=== PATIENT | female | born 2000 | race Caucasian/White ===

== ENCOUNTER 2023-11-09 09:50 | Observation (INO) | payer OTHER, SELFPAY ==
[2023-11-09] VITALS (29 sets, daily range): BP systolic 124–164; BP diastolic 67–114; PULSE 91–135; RESP 14–27; TEMP 36.3–36.7; O2SAT 90–99; BMI 43.4
--- NOTE | ~2023-11-09 | CT_ITS ---
EXAMINATION: CTA abdomen pelvis DATE: 11/09/2023 14:30 INDICATION: Abdominal pain. Right upper quadrant abdominal pain, nausea and vomiting x2-3 days. Repor arcadio kidney infection on outside CT. TECHNIQUE: Computed tomography (CT) of the abdomen and pelvis was performed with 100 mL Omnipaque-350 intravenous contrast in the arterial phase. Automated exposure control and iterative reconstruction technique were employed. The dose-length product was 1360.81 mGy-cm. COMPARISON: None. FINDINGS: Lower thorax: Unremarkable Liver: Normal. Biliary/Gallbladder: Mild gallbladder distention, otherwise normal. No bile duct dilation. Pancreas: No mass or duct dilation. Spleen: Normal. Adrenals:No mass. Kidneys: Delayed right nephrogram. Moderate right perinephric fluid. Mild right hydronephrosis. Nicole l left kidney. GI tract: Mild distal esophageal and gastric wall edema. No small or large bowel dilation. Normal brenda endix. Mesentery/Peritoneum: No ascites, mass, or free air. Retroperitoneum: No mass. Normal abdominal aorta and abdominal arteries, specifically, no renal arter y stenosis or thrombosis detected. Pelvis: 3 mm distal left ureteral calcification. Pelvic organs otherwise within normal limits. Soft Tissues: Subcutaneous gas over the left gluteal region. Bones: No acute osseous finding. IMPRESSION: Mild esophagitis/gastritis. Mild gallbladder hydrops, may be secondary to fasting. Correlate with biliary labs. 3 mm distal right ureteral stone causing mild-moderate obstructive uropathy. Prominent right perineph diya fluid. Urinoma/infection not excluded. Comparison to outside studies would be helpful. Left gluteal subcutaneous gas, possible injection site. Reviewed, dictated and finalized at location K. 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 Mild gallbladder hydrops, may be secondary to fasting. Correlate with biliary l abs. 3 mm distal right ureteral stone causing mild-moderate obstructive uropathy. Pr ominent right perinephric fluid. Urinoma/infection not excluded. Comparison to outside studies would be helpful. Left gluteal subcutaneous gas, possible injection site.
--- NOTE | ~2023-11-09 | US_ITS ---
US right upper quadrant INDICATION: Abdomen pain PROCEDURE: Realtime right upper abdominal ultrasound. COMPARISON: No prior studies for comparison. FINDINGS: The pancreas is normal without focal mass or pancreatic ductal dilation. Liver echotexture is normal without focal mass or intrahepatic biliary dilatation. There is normal directional flow i n the portal vein. The gallbladder is normal without stones, gallbladder wall thickening or pericholecystic fluid. Comm on bile duct measures 3 mm. No sonographic Chao's sign. There is mild right renal caliectasis. IMPRESSION: 1: Mild right renal caliectasis. Reviewed, dictated and finalized at location B. PRESIDENT FOR INSTRUCTION
--- NOTE | ~2023-11-09 | XR_ITS ---
EXAMINATION: XR retrograde pyelo w/stent RT DATE: 11/11/2023 15:05 INVESTIGATOR CLAIMS INDICATION: RIGHT SIDE RETRO/STENT . TECHNIQUE: 4 fluoroscopic images of the right abdomen and pelvis were obtained during retrograde pyel ography with stent placement performed by the surgeon. I was not present in the operating room. Fluor oscopy exposure time was 23.2 seconds. Air Kerma 10.10 mGy. DAP 0.09063 mGym2. COMPARISON: CTA abdomen pelvis 11/09/2023 FINDINGS: Contrast fills a minimally dilated ureter. Post stent deployment the proximal coil terminates in an u pper pole calyx, the distal coil terminates over the right aspect of the urinary bladder. IMPRESSION: Fluoroscopic documentation of retrograde pyelography with stent placement. Please refer to the operat cate note for complete procedural details . Reviewed, dictated and finalized at location K. STIGATOR CLAIMS IMPRESSION: Fluoroscopic documentation of retrograde pyelography with stent placement. Plea se refer to the operative note for complete procedural details .
[2023-11-09] MEDS: SODIUM CHLORIDE 0.9% IV 1,000 ML 999 ML IV CONT (10:29)
[2023-11-09] MEDS: ONDANSETRON INJ 4 MG/2 ML VIAL IV PUSH (10:29)
[2023-11-09] MEDS: MORPHINE SULFATE (*CRX) 4 MG/ML INJ IV PUSH (10:30)
[2023-11-09 10:52] LABS: Basophils Absolute Auto 0.1 K/mm3 (0.0-0.1); Basophils Percent Auto 0.5 % (0.2-1.2); Eosinophils Percent Auto 0.4 % (0-4.4); Hematocrit 39.4 % (37.0-47.0); Hemoglobin 12.5 g/dL (12.0-15.0); Immature Granulocyte Absolute 0.05 K/mm3 (0.00-0.031); Immature Granulocyte Percent A 0.5 % (0-0.5); Lymphocytes Absolute Auto 1.42 K/mm3 (0.9-3.2); Lymphocytes Percent Auto 14.8 % (18.3-44.2); Mean Corpuscular HGB Conc 31.7 g/dl (32-36); Mean Corpuscular Hemoglobin 26.9 pg (26-34); Mean Corpuscular Volume 84.7 fl (80-100); Mean Platelet Volume 9.3 fl (7.4-10.4); Monocytes Absolute Auto 0.5 K/mm3 (0.1-0.6); Monocytes Percent Auto 4.9 % (2.6-8.5); Neutrophils Absolute Auto 7.6 K/mm3 (1.3-6.7); Neutrophils Percent Auto 78.9 % (45.5-73.1); Platelet Count Result 312 k/mm3 (150-375); Red Blood Count 4.65 M/mm3 (4.2-5.4); Red Cell Distribution Width 13.3 % (11.5-14.5); White Blood Count 9.6 K/mm3 (4.5-10.0)
[2023-11-09] MEDS: PROMETHAZINE HCL 25 MG/ML AMPUL 12.5 MG IV PUSH (10:53)
[2023-11-09 11:08] LABS: Alanine Aminotransferase 21 U/L (6-35); Albumin Level 4.1 g/dL (3.5-5.1); Alkaline Phosphatase 81 U/L (38-126); Anion Gap 8 mmol/L (8-16); Aspartate Amino Transferase 29 U/L (14-36); Bilirubin,Total 0.5 mg/dL (0.2-1.3); Blood Urea Nitrogen 13 mg/dL (7-17); Calcium 9.1 mg/dL (8.4-10.2); Carbon Dioxide 23 mmol/L (22-30); Chloride 106 mmol/L (98-107); Estimated CRCL calculation 109 ml/min; Estimated Glomerular Filt Rate > 60; Glucose 109 mg/dL (65-110); Lipase 38 U/L (23-300); Potassium 4.1 mmol/L (3.4-5.0); Sodium 137 mmol/L (137-145)
--- NOTE | 2023-11-09 11:22 | ED.ABDPAIN ---
HPI - Abdominal Pain General Chief Complaint: Abdominal Pain Stated Complaint: abd pain Time Seen by Provider: 11/09/23 09:52 History of Present Illness HPI narrative: Patient is a 23-year-old female who presents ER with abdominal pain. Right upper quadrant. Sharp. Associated nausea and vomiting. Ongoing for couple days. Intermittent. She was seen at an outside hospital yesterday and had an outpatient CT scan. She is started on Levaquin and told she had some sort of infection but she is unsure where the sources. Patient has had severe vomiting today which prompted return visit. No blood in emesis or stool. Related Data Home Medications Medication Instructions Recorded Confirmed No Home Medications 11/09/23 11/09/23 Allergies Allergy/AdvReac Type Severity Reaction Status Date / Time No Known Allergies Allergy Verified 11/09/23 18:09 [facility] Past Medical History Medical History (Updated 11/09/23 @ 19:21 by Waqas Piedra MD) Healthy female adult Surgical History Surgical History (Updated 11/09/23 @ 11:28 by Waqas Piedra MD) No history of previous surgery Family History Family History (Updated 11/09/23 @ 17:23 by Monica Leonard RN) Father Diabetes mellitus Social History Social History Smoking status: Never smoker Alcohol intake: never Substance use: never Do You Feel Safe in your Home?: Yes Lack of Transportation: No Lack of Food: Never True Current Housing: I Have Housing Concerned About Future Housing: No Difficulty Paying Gas/Electric Bills: No Difficulty Paying for Meds: No Currently Unemployed: No Education: Associate Degree Difficulty w/ Childcare or Family Care: No Spiritual care concerns: No Exam Narrative: GENERAL: Uncomfortable-appearing, morbidly obese, and actively vomiting. HEAD: Normocephalic, atraumatic. ENT: Mucous membranes moist. NECK: Supple. CHEST: Clear to auscultation. No respiratory distress. HEART: Regular rate and rhythm. Normal peripheral pulses. ABDOMEN: Soft, tender palpation right upper quadrant with guarding, nondistended EXTREMITIES: Normal range of motion. No edema. SKIN: Warm, dry, no rash. NEURO: Alert and oriented x3. PSYCH: Normal mood and affect. Course Course Emergency Course: 1122: Apparently patient was not seen in the ER, she had an outpatient CT scan of abdomen and pelvis. We will obtain copies of those in indeed shows a shows no acute intra-abdominal process. 1330: outside CT scan showed no abnormality in the abdomen pelvis. There were no stones in the gallbladder or the kidneys. There was no evidence of enteritis. Patient continues to have severe persistent pain in the right upper quadrant. Ultrasound did not show any cholecystitis. It did show some dilated calices within the kidney. Urinalysis/CBC/ BMP normal. Patient has received morphine/Dilaudid. Will try Bentyl and simethicone. We will also add on a CT of the abdomen and pelvis since patient continues to have pain but no obvious cause. 1443: Awaiting CTA results. Patient is on pain will get an additional 1mg of Dilaudid. Discussed with urology. Admit for pain control. Recommend scheduled Toradol IV 15 mg q.6 hours. Patient accepted by hospitalist service. Patient with diagnosis and treatment plan and verbalized understanding. Vital Signs Vital signs: Vital Signs Temperature 98.0 F 11/09/23 09:56 Pulse Rate 102 H 11/09/23 09:56 Respiratory Rate 18 11/09/23 09:56 Blood Pressure 154/98 H 11/09/23 09:56 Pulse Oximetry 99 11/09/23 09:56 Oxygen Delivery Room Air 11/09/23 09:56 Temperature 97.4 F L 11/09/23 17:00 Pulse Rate 106 H 11/09/23 17:00 Respiratory Rate 14 11/09/23 17:00 Blood Pressure 140/92 H 11/09/23 17:00 Pulse Oximetry 99 11/09/23 17:00 Oxygen Delivery Room Air 11/09/23 09:56 MDM - Abdominal Pain Lab Data 11/09/23 10:37 11/09/23 10:37
[2023-11-09] MEDS: HYDROmorphone HCL INJ (*CRX) 1 MG/ML SYR IV PUSH ×2 (11:27→14:44)
[2023-11-09 12:45] LABS: Appearance Urine Clear (Clear); Bacteria Urine Rare /hpf; Bilirubin Urine Negative (Negative); Color Urine Yellow (Yellow); Glucose Urine UA Negative (Negative); Ketones Urine 1+ mg/dL (Negative); Leukocyte Esterase Ur Trace LEU/UL (Negative); Nitrate Urine Negative (Negative); Non Pathogenic Casts 0-2; Protein Urine Negative (Negative); Specific Grav Ur 1.015 (1.001-1.035); Squamous Epithelial Cell Urine Few /hpf (Few); Urobilinogen Urine 0.2 mg/dL (<2.0); WBC Urine 0-5 /hpf
[2023-11-09 12:50] LABS: Add Urine Microscopic? YES
[2023-11-09] MEDS: DICYCLOMINE HCL INJ 20 MG/2 ML VIAL IM (13:52)
[2023-11-09] MEDS: SIMETHICONE 125 MG CHEW TAB PO (13:53)
--- NOTE | 2023-11-09 13:57 | PC.NURSE ---
Urine test added to lab
[2023-11-09 14:06] LABS: Pregnancy On Board Control Positive; Urine Pregnancy Test Negative
[2023-11-09] MEDS: TAMSULOSIN HCL 0.4 MG CAPSULE PO (15:38)
[2023-11-09] MEDS: KETOROLAC 30 MG/ML VIAL (*BKC) IV PUSH (15:39)
--- NOTE | 2023-11-09 15:52 | PM.IMHP ---
H&P: HPI History of Present Illness Date/Time: 11/09/23 16:45 Chief Complaint: Right lower quadrant pain. Narrative: This is a 23-year-old female who presented to the emergency department via private vehicle for evaluation of right lower quadrant pain. The patient provides the following history. She describes an intermittent, sharp and shooting pain in the right lower quadrant associated with nausea and vomiting. She was seen in the ED at an outside hospital yesterday and reportedly had a CT scan done which she believes was unremarkable. She was discharged with a prescription for levofloxacin for suspected urinary tract infection. Her symptoms have continued and are worsening and she came in for evaluation. She denies fever, dysuria, hematuria, and diarrhea. CT today showed a 3 mm distal right ureteral stone causing vixv-bx-vyfbwkyt obstructive uropathy with prominent right perinephric fluid and she is being admitted in this setting for antibiotics, pain control, and urology consultation. Review of Systems Review of Systems: Twelve systems were reviewed and are negative except for as per HPI. [facility] Past Medical History Medical History Healthy female adult Surgical History Surgical History No history of previous surgery Family History Family History Father Diabetes mellitus Social History Social History Smoking status: Never smoker Alcohol intake: never Substance use: never Do You Feel Safe in your Home?: Yes Lack of Transportation: No Lack of Food: Never True Current Housing: I Have Housing Concerned About Future Housing: No Difficulty Paying Gas/Electric Bills: No Difficulty Paying for Meds: No Currently Unemployed: No Education: Associate Degree Difficulty w/ Childcare or Family Care: No Spiritual care concerns: No Meds Home Medications and Allergies Home Medications Medication Instructions Recorded Confirmed Type No Home Medications 11/09/23 11/09/23 History Allergies Allergy/AdvReac Type Severity Reaction Status Date / Time No Known Allergies Allergy Verified 11/09/23 18:09 Vital Signs Vital Signs - 24 hr 11/09/23 09:56 11/09/23 09:58 11/09/23 10:01 Temperature 98.0 F Pulse Rate 102 H 105 H 106 H Respiratory Rate 18 27 H 15 Blood Pressure 154/98 H 154/98 H Pulse Oximetry 99 92 98 Oxygen Delivery Room Air 11/09/23 10:02 11/09/23 10:41 11/09/23 10:45 Temperature Pulse Rate 105 H 130 H 122 H Respiratory Rate 15 16 24 H Blood Pressure Pulse Oximetry 99 99 97 Oxygen Delivery 11/09/23 11:00 11/09/23 11:15 11/09/23 11:33 Temperature Pulse Rate 110 H 110 H 102 H Respiratory Rate 17 19 21 H Blood Pressure 156/103 H Pulse Oximetry 94 98 97 Oxygen Delivery 11/09/23 12:24 11/09/23 12:30 11/09/23 12:31 Temperature Pulse Rate 99 Respiratory Rate 20 Blood Pressure 164/114 H Pulse Oximetry 96 98 97 Oxygen Delivery Exam Narrative: General: Well-developed, nontoxic-appearing female in the semi-Reese position in bed. Weight: 107.8 kg. BMI: 43.5. HEENT: Normocephalic, atraumatic. PERRL, EOMI. Sclera anicteric. Oral mucosa moist. Neck: Supple. Respiratory: Lungs are clear to auscultation bilaterally. Cardiovascular: Regular rate and rhythm with S1-S2. Gastrointestinal: Abdomen is soft, obese, nontender, and nondistended with positive bowel sounds. Patient received IV pain meds not long prior to my examination. No significant tenderness on exam. Skin: Warm and dry. Extremities: No cyanosis, clubbing, or edema. Radial and pedal pulses intact. Neurological: Alert. Cranial nerves 2-12 are grossly intact. No gross focal deficits to casual conversation. Psychiatric: Pleasa
--- NOTE | 2023-11-09 17:10 | PC.NURSE ---
This patient, Nubia Andrade, was admitted to 3 [facility] Surg Room 320-01. Patient/family oriented to hospital policies and general routines including ID bracelet, bed and alarms, visiting hours, pain management, procedures, bathroom and other care routines, personal items, smoking policy, room service/diet, and visiting hours. Information on how to activate the Rapid Response Team has been discussed. Patient/Family are encouraged to report perceived risks to care and to ask questions if they do not understand what they are told or what they should do.
[2023-11-09] MEDS: SODIUM CHLORIDE 0.9% IV 1,000 ML 125 ML IV CONT (17:58)
[2023-11-10] MEDS: HYDROcodone/acetaminophen (*CRX) 5-325 MG TABLET 1 TAB PO (00:44)
[2023-11-10] MEDS: KETOROLAC 15 MG/ML VIAL (*BKC) IV PUSH ×4 (00:47→22:55)
[2023-11-10] MEDS: SODIUM CHLORIDE 0.9% IV 1,000 ML 125 ML IV CONT ×3 (01:55→20:51)
[2023-11-10] MEDS: MORPHINE SULFATE (*CRX) 2 MG/ML INJ IV PUSH ×4 (05:18→20:50)
[2023-11-10 05:46] VITALS: BP 113/64; PULSE 111; RESP 16; TEMP 36.1; O2SAT 98
[2023-11-10 07:23] LABS: Basophils Percent Auto 0.4 % (0.2-1.2); Eosinophils Percent Auto 0.3 % (0-4.4); Hematocrit 38.3 % (37.0-47.0); Hemoglobin 12.1 g/dL (12.0-15.0); Immature Granulocyte Absolute 0.03 K/mm3 (0.00-0.031); Immature Granulocyte Percent A 0.3 % (0-0.5); Lymphocytes Absolute Auto 2.06 K/mm3 (0.9-3.2); Lymphocytes Percent Auto 18.3 % (18.3-44.2); Mean Corpuscular HGB Conc 31.6 g/dl (32-36); Mean Corpuscular Hemoglobin 27.1 pg (26-34); Mean Corpuscular Volume 85.9 fl (80-100); Mean Platelet Volume 9.2 fl (7.4-10.4); Monocytes Absolute Auto 1.1 K/mm3 (0.1-0.6); Monocytes Percent Auto 9.8 % (2.6-8.5); Neutrophils Percent Auto 70.9 % (45.5-73.1); Platelet Count Result 283 k/mm3 (150-375); Red Blood Count 4.46 M/mm3 (4.2-5.4); Red Cell Distribution Width 13.5 % (11.5-14.5); White Blood Count 11.3 K/mm3 (4.5-10.0)
[2023-11-10 07:39] LABS: Anion Gap 7 mmol/L (8-16); Blood Urea Nitrogen 15 mg/dL (7-17); Calcium 8.4 mg/dL (8.4-10.2); Carbon Dioxide 23 mmol/L (22-30); Chloride 108 mmol/L (98-107); Estimated CRCL calculation 99 ml/min; Estimated Glomerular Filt Rate > 60; Glucose 90 mg/dL (65-110); Magnesium 2.1 mg/dL (1.6-2.3); Sodium 138 mmol/L (137-145)
[2023-11-10] MEDS: TAMSULOSIN HCL 0.4 MG CAPSULE PO (08:06)
--- NOTE | 2023-11-10 12:44 | PM.IMPN ---
Progress Note: A&P Assessment and Plan (1) Right distal ureteral calculus: Code(s): N20.1 - Calculus of ureter Status: Acute Assessment and Plan: CT scan shows a 3 mm distal right ureteral stone with kuwa-[id number] obstructive uropathy Urology consulted- appreciate recommendations upon evaluation Strain all urine Pain management orders in place (2) Obstructive uropathy: Code(s): N13.9 - Obstructive and reflux uropathy, unspecified Status: Acute Assessment and Plan: CT scan shows a 3 mm distal right ureteral stone with ilbu-qu-kldcxyjc obstructive uropathy US shows mild right renal calilectasis Urology consulted- appreciate recommendations upon evaluation Strain all urine Pain control in place (3) Pyelonephritis: Code(s): N12 - Tubulo-interstitial nephritis, not specified as acute or chronic Status: Acute Assessment and Plan: CTA: Abd/pelvis show: Prominent right perinephric fluid concerning for nephritis Urology consulted- appreciate recommendations upon evaluation (4) Elevated blood pressure reading: Code(s): R03.0 - Elevated blood-pressure reading, without diagnosis of hypertension Status: Acute Assessment and Plan: BP elevated in ED and upon admission BP-154/98 in ED, today with pain control 113/64 BP appears to be pain related, as pain is controled BP should normalize Continue to monitor Time Spent With Patient Time with patient: 15 - 25 minutes Subjective Date/time seen: 11/10/23 844 Interval history: 23 year old female seen today in interval assessment after ER visit for elevated BP and right lower quadrant pain and admitted in this setting for antibiotics, pain control, and urology consultation. She is receiving Rocephin for perinephric fluid which is concerning for pyelonephritis while awaiting urology evaluation. She describes per pain as stabbing on the right lower quadrant. She stated that she initially had N/V that has subsided. Also admits to some dysuria- urine culture pending at this time. CT showed a 3 mm distal right ureteral stone causing vzeg-xq-qkfwynfn obstructive uropathy. Her pain was intense and pain medications were adjusted accordingly. BPs appear to elevate with pain, as pain is controlled BP will return to normal. All questions were answered to satisfaction. Review of Systems Review of Systems: All systems reviewed & are unremarkable except as noted in HPI and below Exam Narrative: General: Well-developed, nontoxic-appearing female in supine position in bed. Alert and Oriented x 4 HEENT: Normocephalic, atraumatic. PERRL, EOMI. Sclera anicteric. Oral mucosa moist. Neck: Supple. no JVP, FROM Respiratory: Lungs are clear to auscultation bilaterally. non-labored respirations Cardiovascular: Regular rate and rhythm with S1-S2. Gastrointestinal: Abdomen is soft, nontender, and nondistended with positive bowel sounds. No significant tenderness on exam. Skin: Warm and dry. Extremities: No cyanosis, clubbing, or edema. Radial and pedal pulses intact. Neurological: Alert. Cranial nerves II-XII are grossly intact. No gross focal deficits to casual conversation. Psychiatric: Pleasant and cooperative with normal mood and affect. Judgment and insight intact. Objective Data Vital Signs Vital Signs: Vital Signs - 24 hr 11/09/23 14:00 11/09/23 14:02 11/09/23 14:15 Temperature Pulse Rate Respiratory Rate Blood Pressure 151/91 H Pulse Oximetry 98 98 97 Oxygen Delivery 11/09/23 14:31 11/09/23 14:44 11/09/23 14:46 Temperature Pulse Rate 110 H 104 H Respiratory Rate 19 21 H Blood Pressure 147/98 H Pulse Oximetry 93 95 93 Oxygen Delivery 11/09/23 15:03 11/09/23 15:20 11/09/23 15:30 Temperature Pulse Rate 109 H 135 H 94 Respiratory Rate 20 19 20 Blood Pressure Pulse Oximetry 94 Oxygen Delivery 11/09/23 15:45 11/09/23 16:00 11/09/23 16:15 Temper
--- NOTE | 2023-11-10 13:19 | WPDURCON ---
Assessment and Plan Assessment and plan (1) Right distal ureteral calculus: Code(s): N20.1 - Calculus of ureter Status: Acute (2) Obstructive uropathy: Code(s): N13.9 - Obstructive and reflux uropathy, unspecified Status: Acute Plan Continue with straining urine Continue with Flomax daily Continue with Toradol 15mg IV q 6 hours scheduled Very high likelihood patient will pass the stone given its size and location on CT Will make her NPO after midnight in case stone is not passed in the next 24 hours so we could possibly put her on for ureteroscopy stone extraction Urology Consult Note HPI Date Seen: 11/10/23 Requesting Physician: Mayo Hernandez MD Primary Care Provider: Ric Jorge Consult Narrative Narrative: Nubia Andrade is a 23 year old female who presented with RLQ pain to outside hospital. CT there was unremarkable. Pain persisted and she presented to [facility] ER yesterday where a repeat CT scan noted a 2mm distal UVJ with mild hydronephrosis. No other stones noted. Denies hematuria. This is the patient's 1st stone. Only symptom currently his dysuria/frequency. Toradol resolved the pain and pt continues to strain urine. [facility] Past Medical History Medical History Healthy female adult Surgical History Surgical History No history of previous surgery Family History Family History Father Diabetes mellitus Social History Social History Smoking status: Never smoker Alcohol intake: never Substance use: never Do You Feel Safe in your Home?: Yes Lack of Transportation: No Lack of Food: Never True Current Housing: I Have Housing Concerned About Future Housing: No Difficulty Paying Gas/Electric Bills: No Difficulty Paying for Meds: No Currently Unemployed: No Education: Associate Degree Difficulty w/ Childcare or Family Care: No Spiritual care concerns: No Meds Home Medications and Allergies Home Medications Medication Instructions Recorded Confirmed Type No Home Medications 11/09/23 11/09/23 History Allergies Allergy/AdvReac Type Severity Reaction Status Date / Time No Known Allergies Allergy Verified 11/09/23 18:09 Vital Signs Vital Signs - 24 hr 11/09/23 14:00 11/09/23 14:02 11/09/23 14:15 Temperature Pulse Rate Respiratory Rate Blood Pressure 151/91 H Pulse Oximetry 98 98 97 Oxygen Delivery 11/09/23 14:31 11/09/23 14:44 11/09/23 14:46 Temperature Pulse Rate 110 H 104 H Respiratory Rate 19 21 H Blood Pressure 147/98 H Pulse Oximetry 93 95 93 Oxygen Delivery 11/09/23 15:03 11/09/23 15:20 11/09/23 15:30 Temperature Pulse Rate 109 H 135 H 94 Respiratory Rate 20 19 20 Blood Pressure Pulse Oximetry 94 Oxygen Delivery 11/09/23 15:45 11/09/23 16:00 11/09/23 16:15 Temperature Pulse Rate 100 91 117 H Respiratory Rate 20 17 23 H Blood Pressure Pulse Oximetry 94 94 90 Oxygen Delivery 11/09/23 16:37 11/09/23 16:59 11/09/23 17:00 Temperature 36.5 C 36.3 C L Pulse Rate 116 H 105 H 106 H Respiratory Rate 17 14 14 Blood Pressure 133/91 H 140/92 H Pulse Oximetry 98 98 99 Oxygen Delivery 11/09/23 19:31 11/09/23 22:00 11/10/23 05:46 Temperature 36.6 C 36.1 C L Pulse Rate 100 111 H Respiratory Rate 18 16 Blood Pressure 124/67 113/64 Pulse Oximetry 99 98 98 Oxygen Delivery Room Air 11/10/23 08:00 Temperature Pulse Rate Respiratory Rate Blood Pressure Pulse Oximetry Oxygen Delivery Room Air Exam Narrative: NAD NCAT Breathing unlabored Abdomen soft nt nd deferred MAEW Results Labs 11/10/23 06:55 11/10/23 06:55 Labs: Short CBC 11/10/23
[2023-11-10 14:00] VITALS: BP 136/88; PULSE 99; RESP 20; TEMP 36.2; O2SAT 98
[2023-11-10 22:00] VITALS: BP 133/82; PULSE 86; RESP 20; TEMP 36.1; O2SAT 99
[2023-11-10] MEDS: SALINE LOCK FLUSH 10 ML IV PUSH (22:55)
[2023-11-11] VITALS (11 sets, daily range): BP systolic 108–152; BP diastolic 60–96; PULSE 65–110; RESP 14–20; TEMP 35.6–36.7; O2SAT 97–100
[2023-11-11] MEDS: SODIUM CHLORIDE 0.9% IV 1,000 ML 125 ML IV CONT (04:45)
[2023-11-11] MEDS: KETOROLAC 15 MG/ML VIAL (*BKC) IV PUSH ×3 (04:45→16:26)
[2023-11-11] MEDS: SALINE LOCK FLUSH 10 ML IV PUSH (04:46)
[2023-11-11 04:57] LABS: Hematocrit 32.9 % (37.0-47.0); Hemoglobin 10.4 g/dL (12.0-15.0); Mean Corpuscular HGB Conc 31.6 g/dl (32-36); Mean Corpuscular Hemoglobin 27.2 pg (26-34); Mean Corpuscular Volume 86.1 fl (80-100); Platelet Count Result 227 k/mm3 (150-375); Red Blood Count 3.82 M/mm3 (4.2-5.4); Red Cell Distribution Width 13.6 % (11.5-14.5); White Blood Count 9.1 K/mm3 (4.5-10.0)
[2023-11-11 05:27] LABS: Alanine Aminotransferase 15 U/L (6-35); Albumin Level 3.1 g/dL (3.5-5.1); Alkaline Phosphatase 65 U/L (38-126); Anion Gap 4 mmol/L (8-16); Aspartate Amino Transferase 25 U/L (14-36); Bilirubin,Total 0.5 mg/dL (0.2-1.3); Blood Urea Nitrogen 10 mg/dL (7-17); Calcium 8.4 mg/dL (8.4-10.2); Carbon Dioxide 25 mmol/L (22-30); Chloride 107 mmol/L (98-107); Estimated CRCL calculation 90 ml/min; Estimated Glomerular Filt Rate > 60; Glucose 84 mg/dL (65-110); Potassium 4.1 mmol/L (3.4-5.0); Sodium 136 mmol/L (137-145)
--- NOTE | 2023-11-11 08:10 | WPDUROPN2 ---
Progress Note: A&P Assessment and Plan (1) Right distal ureteral calculus: Code(s): N20.1 - Calculus of ureter Status: Acute (2) Hydronephrosis: Code(s): N13.30 - Unspecified hydronephrosis Status: Acute Plan I spoke with her and her family this morning. She states she still has right flank pain. She rates as an 8. We discussed continued observation with a trial of conservative stone passage versus intervention. She prefers intervention. The stone is difficult to visualize on the CT scan but there is hydronephrosis and perinephric fluid. We will plan on right ureteroscopy with stone extraction possible stent. She understands risks of bleeding, infection, damage to the urinary tract. She understands the stone may not be present and may have already passed. She understands the postoperative recovery and expectations regarding a stent Subjective Subjective Date/Time Seen: 11/11/23 08:10 Interval history: she states stone is yet to pass. She rates her pain as intermittently at an 8. I reviewed her CT scan. She does have fluid around the right kidney. There is hyuk-mc-cebcszwy hydronephrosis. The stone is difficult to visualize in the pelvis. Exam Narrative: No acute distress normal breathing alert orient x3 Objective Data Vital Signs Vital Signs: Vital Signs - 24 hr 11/10/23 14:00 11/10/23 20:00 11/10/23 22:00 Temperature 97.1 F L 97 F L Pulse Rate 99 86 Respiratory Rate 20 20 Blood Pressure 136/88 133/82 Pulse Oximetry 98 99 Oxygen Delivery Room Air 11/11/23 06:00 Temperature 97.6 F Pulse Rate 80 Respiratory Rate 20 Blood Pressure 131/81 Pulse Oximetry 98 Oxygen Delivery Intake/Output Intake/Output: Intake & Output 11/08/23 11/09/23 11/10/23 11/11/23 23:59 23:59 23:59 23:59 Intake Total 1510 15733 1000 Output Total 2700 1000 Balance 1510 7300 0 Meds/Results Medications: Active Medications Generic Name Dose Route Start Last Admin Trade Name Freq PRN Reason Stop Dose Admin Acetaminophen 650 mg 11/09/23 15:57 Acetaminophen 325 Mg Tablet PO Q6H PRN Mild Pain (1-3) or Fever Hydrocodone Bitart/Acetaminophen 1 tab 11/09/23 15:28 11/10/23 00:44 Hydrocodone/Acetaminophen (*Crx) 5-325 Mg Tablet PO 1 tab Q4H PRN Administration Pain Rated 4-6 Sodium Chloride 1,000 mls @ 125 mls/hr 11/09/23 15:40 11/11/23 04:45 Normal Saline Iv IV CONT 125 mls/hr .Q8H TIFFANIE Administration Ceftriaxone Sodium 1 gm in 50 mls @ 100 mls/hr 11/09/23 16:00 11/10/23 15:50 Rocephin 1 Gm/Ns 50 Ml IVPB Infused Q24H TIFFANIE Infusion Ketorolac Tromethamine 15 mg 11/10/23 10:35 11/11/23 04:45 Ketorolac 15 Mg/Ml Vial (*Bkc) IV PUSH 15 mg Q6H TIFFANIE Administration Morphine Sulfate 2 mg 11/10/23 08:45 11/10/23 20:50 Morphine Sulfate (*Crx) 2 Mg/Ml Inj IV PUSH 2 mg Q3HR PRN Administration Pain Rated 7-10 Ondansetron HCl 4 mg 11/09/23 15:28 Ondansetron Inj 4 Mg/2 Ml Vial IV PUSH Q4H PRN Nausea Sodium Chloride 10 ml 11/10/23 22:00 11/11/23 04:46 Saline Lock Flush IV PUSH 10 ml Q8HR TIFFANIE Administration Sodium Chloride 10 ml 11/10/23 18:34 Saline Lock Flush IV PUSH PRN PRN Flush Sodium Chloride 20 ml 11/10/23 18:34 Saline Lock Flush IV PUSH PRN PRN after blood draws Tamsulosin HCl 0.4 mg 11/10/23 09:00 11/10/23 08:06 Tamsulosin Hcl 0.4 Mg Capsule PO 0.4 mg QAM TIFFANIE Administration Radiology Results: ITS Impressions Upper Quadrant Ultrasound 11/09/23 11:28 IMPRESSION: 1: Mild right renal caliectasis. Abdomen/Pelvis CTA 11/09/23 14:41 IMPRESSION: Mild esophagitis/gastritis. Mild gallbladder hydrops, may be secondary to fasting. Correlate with biliary labs. 3 mm distal right ureteral stone causing mild-moderate obstructive uropathy. Prominent right perinephric fluid. Urinoma/infection not ex
--- NOTE | 2023-11-11 09:33 | P.PNIM_ITS ---
Progress Note: A&P Assessment and Plan (1) Right distal ureteral calculus: Code(s): N20.1 - Calculus of ureter Status: Acute Assessment and Plan: * CT scan shows a 3 mm distal right ureteral stone with qfky-hb-mlfzgzyk obstructive uropathy * Urology consulted- appreciate recommendations upon evaluation * Strain all urine * Pain management orders in place * 11/11/23: Continue to have right flank colicky pain, no stone passed at time of assessment * Urology- Dr. Michele to take to OR for right ureteroscopy with stone extraction possible stent later today. * Patient remains NPO (2) Obstructive uropathy: Code(s): N13.9 - Obstructive and reflux uropathy, unspecified Status: Acute Assessment and Plan: * CT scan shows a 3 mm distal right ureteral stone with ajcu-tt-ccbqmtnq obstructive uropathy * US shows mild right renal calilectasis * Urology consulted- appreciate recommendations upon evaluation * Strain all urine * Pain control in place * 11/11/23: Continue to have right flank colicky pain, no stone passed at time of assessment * Urology- Dr. Michele to take to OR for right ureteroscopy with stone extraction possible stent later today. * Patient remains NPO (3) Pyelonephritis: Code(s): N12 - Tubulo-interstitial nephritis, not specified as acute or chronic Status: Acute Assessment and Plan: * CTA: Abd/pelvis show: Prominent right perinephric fluid concerning for nephritis * Urology consulted- appreciate recommendations upon evaluation * 11/11/23: Continue to have right flank colicky pain, no stone passed at time of assessment * Urology- Dr. Michele to take to OR for right ureteroscopy with stone extraction possible stent later today. (4) Elevated blood pressure reading: Code(s): R03.0 - Elevated blood-pressure reading, without diagnosis of hypertension Status: Acute Assessment and Plan: * BP elevated in ED and upon admission * BP-154/98 in ED, today with pain control 113/64 * BP appears to be pain related, as pain is controled BP should normalize * Continue to monitor * 11/11/23: BP trending down to WNL- Elevated with episodes of pain * Denies any symptoms such as headaches, chest pain, blurred vision at this time. * Educated on dietary measures and increasing activity levels to decreased BP * Continue to monitor Time Spent With Patient Time with patient: 15 - 25 minutes Subjective Date/time seen: 11/11/23 0900 Interval history: 23 year old female seen today at bedside for elevate BP and right flank pain concerning of pyelonephrititis. She stated that stone is yet to pass. She rates her pain as intermittently at an 5 at this time continues to describe as stabbing-like, stated it increased as she started trying to walk around in order to attempt to pass the stone. CT scan showed a 3 mm distal right ureteral stone causing qucc-ld-sehlhbsx obstructive uropathy and fluid around the right kidney. Urology-Dr. Michele saw patient this morning and discussed conservative stone passage trial versus intervention. Patient expressed that she would prefer intervention. Urology plans for OR later today for right ureteroscopy with stone extraction possible stent. Patient remains NPO. Patient denies further dysuria symptoms. Patient also educated on elevated BP. She denies any symptoms such as headaches, chest pain, blurred vision at this time. Educated on dietary measures and increasing activity levels to decreased BP. Patient verbalized unde rstanding. All questions answered to patient's satisfaction. Review of Systems Review of Systems: All systems revi
--- NOTE | 2023-11-11 09:33 | PM.IMPN ---
Progress Note: A&P Assessment and Plan (1) Right distal ureteral calculus: Code(s): N20.1 - Calculus of ureter Status: Acute Assessment and Plan: CT scan shows a 3 mm distal right ureteral stone with ixjj-ff-uscryqkl obstructive uropathy Urology consulted- appreciate recommendations upon evaluation Strain all urine Pain management orders in place 11/11/23: Continue to have right flank colicky pain, no stone passed at time of assessment Urology- Dr. Michele to take to OR for right ureteroscopy with stone extraction possible stent later today. Patient remains NPO (2) Obstructive uropathy: Code(s): N13.9 - Obstructive and reflux uropathy, unspecified Status: Acute Assessment and Plan: CT scan shows a 3 mm distal right ureteral stone with nsgt-ee-oqjcunzl obstructive uropathy US shows mild right renal calilectasis Urology consulted- appreciate recommendations upon evaluation Strain all urine Pain control in place 11/11/23: Continue to have right flank colicky pain, no stone passed at time of assessment Urology- Dr. Michele to take to OR for right ureteroscopy with stone extraction possible stent later today. Patient remains NPO (3) Pyelonephritis: Code(s): N12 - Tubulo-interstitial nephritis, not specified as acute or chronic Status: Acute Assessment and Plan: CTA: Abd/pelvis show: Prominent right perinephric fluid concerning for nephritis Urology consulted- appreciate recommendations upon evaluation 11/11/23: Continue to have right flank colicky pain, no stone passed at time of assessment Urology- Dr. Michele to take to OR for right ureteroscopy with stone extraction possible stent later today. (4) Elevated blood pressure reading: Code(s): R03.0 - Elevated blood-pressure reading, without diagnosis of hypertension Status: Acute Assessment and Plan: BP elevated in ED and upon admission BP-154/98 in ED, today with pain control 113/64 BP appears to be pain related, as pain is controled BP should normalize Continue to monitor 11/11/23: BP trending down to WNL- Elevated with episodes of pain Denies any symptoms such as headaches, chest pain, blurred vision at this time. Educated on dietary measures and increasing activity levels to decreased BP Continue to monitor Time Spent With Patient Time with patient: 15 - 25 minutes Subjective Date/time seen: 11/11/23 0900 Interval history: 23 year old female seen today at bedside for elevate BP and right flank pain concerning of pyelonephrititis. She stated that stone is yet to pass. She rates her pain as intermittently at an 5 at this time continues to describe as stabbing-like, stated it increased as she started trying to walk around in order to attempt to pass the stone. CT scan showed a 3 mm distal right ureteral stone causing kpbn-hz-wjssivtu obstructive uropathy and fluid around the right kidney. Urology-Dr. Michele saw patient this morning and discussed conservative stone passage trial versus intervention. Patient expressed that she would prefer intervention. Urology plans for OR later today for right ureteroscopy with stone extraction possible stent. Patient remains NPO. Patient denies further dysuria symptoms. Patient also educated on elevated BP. She denies any symptoms such as headaches, chest pain, blurred vision at this time. Educated on dietary measures and increasing activity levels to decreased BP. Patient verbalized understanding. All questions answered to patient's satisfaction. Review of Systems Review of Systems: All systems reviewed & are unremarkable except as noted in HPI and below Exam Narrative: General: Well-developed, nontoxic-appearing female in high folwers position in bed. Alert and Oriented x 4 HEENT: Normocephalic, atraumatic. PERRL, EOMI. Sclera anicteric. MMM. Neck: Supple. no JVP, FROM Respiratory: Lungs are clear to auscultation bilaterally. non-labored respirat
[2023-11-11] MEDS: TAMSULOSIN HCL 0.4 MG CAPSULE PO (09:38)
--- NOTE | 2023-11-11 09:45 | WPDHPUPDATE1 ---
History and Physical Update Update Date/Time: 11/11/23 09:45 History and Physical has been reviewed, including an updated exam of the patient. There are NO changes in the patient's condition. Risks, benefits, and alternatives have been discussed and questions answered. Patient agrees to proceed with procedure.
[2023-11-11] MEDS: LACTATED RINGERS 1,000 ML 30 ML IV CONT ×2 (13:00→15:30)
--- NOTE | 2023-11-11 13:16 | PC.NURSE ---
Pt transported via bed off of unit to preop.
[2023-11-11] MEDS: fentaNYL CITRATE INJ (*CRX) 100 MCG/2 ML VIAL 50 MCG IV PUSH (14:30)
--- NOTE | 2023-11-11 15:00 | WPDANESEPPF ---
Anes - Initial Pre Proc Eval Procedure: Operation Date: 11/11/23 15:30 Proposed Procedures p Cystoscopy, Right Ureteroscopy, Right Retrograde Pyelogram, Right Stone Extraction, Possible Right Stent Placement, Possible Holmium Laser - Jossue Michele MD Date/Time: 11/11/23 15:00 Surgeon: Mayo Hernandez MD Pre Op Diagnosis: Ureterolithiasis,Uncontrolled Pain Patient Data Age: 23 Gender: F Height: 1.57 m Weight: 107.5 kg Last Vital Signs Temp 98.0 F 11/11/23 13:17 Pulse 110 H 11/11/23 13:17 Resp 18 11/11/23 13:17 BP 152/87 H 11/11/23 13:17 Pulse Ox 99 11/11/23 13:17 O2 Del Method Room Air 11/11/23 13:17 Allergies Allergy/AdvReac Type Severity Reaction Status Date / Time No Known Allergies Allergy Verified 11/11/23 14:29 Home Medications Medication Instructions Recorded Confirmed Type No Home Medications 11/09/23 11/09/23 History Laboratory Tests 11/11/23 04:51 WBC 9.1 K/mm3 (4.5-10.0) RBC 3.82 L M/mm3 (4.2-5.4) Hgb 10.4 L g/dL (12.0-15.0) Hct 32.9 L % (37.0-47.0) MCV 86.1 fl (80-100) MCH 27.2 pg (26-34) MCHC 31.6 L g/dl (32-36) RDW 13.6 % (11.5-14.5) Plt Count 227 k/mm3 (150-375) MPV 9.0 fl (7.4-10.4) Sodium 136 L mmol/L (137-145) Potassium 4.1 mmol/L (3.4-5.0) Chloride 107 mmol/L (98-107) Carbon Dioxide 25 mmol/L (22-30) Anion Gap 4 L mmol/L (8-16) BUN 10 D mg/dL (7-17) Creatinine 1.00 mg/dL (0.7-1.0) Estim Creat Clear Calc 90 ml/min Estimated GFR > 60 (59 - ) Glucose 84 mg/dL (65-110) Calcium 8.4 mg/dL (8.4-10.2) Total Bilirubin 0.5 mg/dL (0.2-1.3) AST 25 U/L (14-36) ALT 15 U/L (6-35) Alkaline Phosphatase 65 U/L (38-126) Total Protein 6.0 L g/dL (6.3-8.2) Albumin 3.1 L g/dL (3.5-5.1) Patient hx anesthesia problems: none Family hx anesthesia problems: none Results Review: All pre-operative results and documents have been reviewed as part of the pre-operative evaluation. FOR[facility]LY [facility] Past Medical History Medical History Healthy female adult Surgical History Surgical History No history of previous surgery Family History Family History Father Diabetes mellitus Social History Social History Smoking status: Never smoker Alcohol intake: never Substance use: never Do You Feel Safe in your Home?: Yes Lack of Transportation: No Lack of Food: Never True Current Housing: I Have Housing Concerned About Future Housing: No Difficulty Paying Gas/Electric Bills: No Difficulty Paying for Meds: No Currently Unemployed: No Education: Associate Degree Difficulty w/ Childcare or Family Care: No Spiritual care concerns: No Anes - Eval Final PreProcedure Day of Procedure 11/11/23 15:00 Patient weight: morbidly obese Heart: regular rate and rhythm Lungs: clear to auscultation Airway: Mallampati scale class II Neurological: alert and oriented Last oral intake: >/= 8 hours ASA classification: III Emergent: no Anesthetic plan: proceed Anesthesia type and monitoring: general LMA and standard monitoring Results Review: All pre-operative results and documents have been reviewed as part of the pre-operative evaluation. Informed Consent: The patient's anesthetic plan and its attendant risks and benefits were discussed with the patient/family/POA. Questions were solicited and answers provided to the satisfaction of the patient/family/POA.
--- NOTE | 2023-11-11 15:28 | P.OP_ITS ---
Procedure Note - Detailed Date of Procedure 11/11/23 Pre-op Diagnosis right ureteral stone Post-op Diagnosis Same Procedure Performed cystoscopy, right retrograde pyelogram, right ureteroscopy, stone extraction, stent placed Surgeon Jossue Michele MD Anesthesia General Indications a young woman with a distal right ureteral stone. She has failed a trial of conservative stone management. She would like the stone removed. She presents for ureteroscopy. She understands risks of bleeding, infection, damage to the urinary tract, inability to remove the stone. She agrees to proceed Findings distal right ureteral stone Description of Procedure she was correctly identified. Informed consent obtained. She from the operating room. She was given general anesthesia. She was placed in dorsal lithotomy position. She was already on appropriate perioperative antibiotics. She was prepped draped sterile fashion. Time-out performed cystoscopy reveal repairing bladder. No tumors or abnormalities. Gentle retrograde pyelogram on the right showed mild hydronephrosis and 8 small filling defect of the distal ureter. there is no extravasation. I placed a guidewire to the kidney. I dilated the ureter the 810 dilator. I performed ureteroscopy. The stone was encountered. It was basketed and extracted intact. I re- examined the ureter. There was no additional stone material. Due to the small amount of perinephric fluid I opted to leave ureteral stent. I placed 4.8 Arabic ureteral stent. Proximal coil was in the upper pole kidney. Distal coil was confirmed to be in the bladder visually. The bladder strain she was awakened transferred to PACU in stable condition Estimated Blood Loss 1 Pathology Yes ( stone) Complications No immediate complications Condition Stable Disposition PACU
[2023-11-11] MEDS: oxyBUTYnin CHLORIDE 5 MG TABLET PO (16:26)
--- NOTE | 2023-11-12 16:17 | P.DS_ITS ---
DS: Admitting Diagnosis Discharge Date 11/11/23 Admitting Diagnosis Pyelonephritis DS: Discharge Diagnosis Discharge Diagnosis (1) Right distal ureteral calculus: Code(s): N20.1 - Calculus of ureter Status: Acute Assessment and Plan: * CT scan shows a 3 mm distal right ureteral stone with lrnw-gn-osdspzfq obstructive uropathy * Urology consulted- appreciate recommendations upon evaluation * Strain all urine * Pain management orders in place * 11/11/23: Continue to have right flank colicky pain, no stone passed at time of assessment * Urology- Dr. Michele to take to OR for right ureteroscopy with stone extraction possible stent later today. * Patient remains NPO * Urology preformed: cystoscopy, right retrograde pyelogram, right ureteroscopy, stone extraction, stent placed * Urology OK for patient DC (2) Obstructive uropathy: Code(s): N13.9 - Obstructive and reflux uropathy, unspecified Status: Acute Assessment and Plan: * CT scan shows a 3 mm distal right ureteral stone with ivun-ev-bnrjopry obstructive uropathy * US shows mild right renal calilectasis * Urology consulted- appreciate recommendations upon evaluation * Strain all urine * Pain control in place * 11/11/23: Continue to have right flank colicky pain, no stone passed at time of assessment * Urology- Dr. Michele to take to OR for right ureteroscopy with stone extraction possible stent later today. * Patient remains NPO * Urology preformed: cystoscopy, right retrograde pyelogram, right ureteroscopy, stone extraction, stent placed * Urology OK for patient to OR (3) Pyelonephritis: Code(s): N12 - Tubulo-interstitial nephritis, not specified as acute or chronic Status: Acute Assessment and Plan: * CTA: Abd/pelvis show: Prominent right perinephric fluid concerning for nephritis * Urology consulted- appreciate recommendations upon evaluation * 11/11/23: Continue to have right flank colicky pain, no stone passed at time of assessment * Urology- Dr. Michele to take to OR for right ureteroscopy with stone extraction possible stent later today. * Urology preformed: cystoscopy, right retrograde pyelogram, right ureteroscopy, stone extraction, stent placed * Urology OK for patient to [place] (4) Elevated blood pressure reading: Code(s): R03.0 - Elevated blood-pressure reading, without diagnosis of hypertension Status: Acute Assessment and Plan: * BP elevated in ED and upon admission * BP-154/98 in ED, today with pain control 113/64 * BP appears to be pain related, as pain is controled BP should normalize * Continue to monitor * 11/11/23: BP trending down to WNL- Elevated with episodes of pain * Denies any symptoms such as headaches, chest pain, blurred vision at this time. * Educated on dietary measures and increasing activity levels to decreased BP * Continue to monitor DS: Summary Hospital Course Reason for hospitalization: Pyelonephritis elevated BP Hospital Course: 23 year old female seen AM today at bedside for elevate BP and right flank pain concerning of pyelonephrititis. CT scan showed a 3 mm distal right ureteral stone causing qnyn-fc-tnpsqbuy obstructive uropathy and fluid around the right kidney. She was admitted for IV fluids, abx and urology consult. Urology-Dr.? Michele preformed cystoscopy, right retrograde peylogram, right ureteroscopy with stone extraction and stent placement. Patient also educated this AM on elevated BP. She denied any symptoms such as headaches, chest pain, blurred vision at this time. Educated on dietary measures and increasing acti
--- NOTE | 2023-11-12 16:17 | PM.DS ---
DS: Admitting Diagnosis Discharge Date 11/11/23 Admitting Diagnosis Pyelonephritis DS: Discharge Diagnosis Discharge Diagnosis (1) Right distal ureteral calculus: Code(s): N20.1 - Calculus of ureter Status: Acute Assessment and Plan: CT scan shows a 3 mm distal right ureteral stone with jdyp-dp-ivdjwvln obstructive uropathy Urology consulted- appreciate recommendations upon evaluation Strain all urine Pain management orders in place 11/11/23: Continue to have right flank colicky pain, no stone passed at time of assessment Urology- Dr. Michele to take to OR for right ureteroscopy with stone extraction possible stent later today. Patient remains NPO Urology preformed: cystoscopy, right retrograde pyelogram, right ureteroscopy, stone extraction, stent placed Urology OK for patient DC (2) Obstructive uropathy: Code(s): N13.9 - Obstructive and reflux uropathy, unspecified Status: Acute Assessment and Plan: CT scan shows a 3 mm distal right ureteral stone with mpsd-zl-hpeneaom obstructive uropathy US shows mild right renal calilectasis Urology consulted- appreciate recommendations upon evaluation Strain all urine Pain control in place 11/11/23: Continue to have right flank colicky pain, no stone passed at time of assessment Urology- Dr. Michele to take to OR for right ureteroscopy with stone extraction possible stent later today. Patient remains NPO Urology preformed: cystoscopy, right retrograde pyelogram, right ureteroscopy, stone extraction, stent placed Urology [place] for patient to [place] (3) Pyelonephritis: Code(s): N12 - Tubulo-interstitial nephritis, not specified as acute or chronic Status: Acute Assessment and Plan: CTA: Abd/pelvis show: Prominent right perinephric fluid concerning for nephritis Urology consulted- appreciate recommendations upon evaluation 11/11/23: Continue to have right flank colicky pain, no stone passed at time of assessment Urology- Dr. Michele to take to OR for right ureteroscopy with stone extraction possible stent later today. Urology preformed: cystoscopy, right retrograde pyelogram, right ureteroscopy, stone extraction, stent placed Urology [place] for patient to [place] (4) Elevated blood pressure reading: Code(s): R03.0 - Elevated blood-pressure reading, without diagnosis of hypertension Status: Acute Assessment and Plan: BP elevated in ED and upon admission BP-154/98 in ED, today with pain control 113/64 BP appears to be pain related, as pain is controled BP should normalize Continue to monitor 11/11/23: BP trending down to WNL- Elevated with episodes of pain Denies any symptoms such as headaches, chest pain, blurred vision at this time. Educated on dietary measures and increasing activity levels to decreased BP Continue to monitor DS: Summary Hospital Course Reason for hospitalization: Pyelonephritis elevated BP Hospital Course: 23 year old female seen AM today at bedside for elevate BP and right flank pain concerning of pyelonephrititis. CT scan showed a 3 mm distal right ureteral stone causing gsop-yh-vzzpejwo obstructive uropathy and fluid around the right kidney. She was admitted for IV fluids, abx and urology consult. Urology-Dr.? Michele preformed cystoscopy, right retrograde peylogram, right ureteroscopy with stone extraction and stent placement. Patient also educated this AM on elevated BP. She denied any symptoms such as headaches, chest pain, blurred vision at this time. Educated on dietary measures and increasing activity levels to decreased BP. Patient verbalized understanding. Patient was cleared by urology for DC home. Status at Discharge Cognitive/behavioral status at discharge: at baseline Functional status at discharge: independent ambulation Overall status at discharge: patient is back to baseline Time Spent with Patient Time attestation: Total time spent providing and/or coordinating discharg
== END 2023-11-11 19:10 | disposition home or self-care (01) ==
LOC: ANHED 10:32 → ANH3MEDSUR 16:51
PROVIDERS: Nurse Practitioner Family; Physician Assistant; Urology; Admitting Provider Family Medicine; Emergency Provider Emergency Medicine; Visit Provider Family Medicine
PROC: (CPT 52352; principal; 2023-11-11 15:30)
DX: N13.2 Hydronephrosis with renal and ureteral calculous obstruction (principal); N13.9 Obstructive and reflux uropathy, unspecified; N12 Tubulo-interstitial nephritis, not specified as acute or chronic; R03.0 Elevated blood-pressure reading, without diagnosis of hypertension
CPT/HCPCS: 52332; 52352; 36415; 36569; 74174; 74420; 76705; 80048; 80053; 81001; 81025; 82365; 83690; 83735; 85025; 85027; 87086; 88300; 96361; 96365; 96372; 96374; 96375; 96376; 99285; A9270; C1751; C1769; C2617; G0378; J0500; J0696; J1100; J1170; J1885; J2250; J2270; J2405; J2550; J2704; J3010; J7030; J7120; Q9966; Q9967

== ENCOUNTER 2025-08-31 12:57 | Outpatient (CLI) | payer OTHER, SELFPAY ==
--- NOTE | ~2025-08-31 | CT_ITS ---
CT ABDOMEN AND PELVIS WITHOUT CONTRAST Clinical History: right ureteral stone Comparison: CTA performed 2023 Technique: Unenhanced axial images lung bases to symphysis pubis Coronal, sagittal reformats CT images acquired with automatic exposure control for dose reduction DLP: 610 mGy-cm Findings: Without intravenous contrast, sensitivity for detecting visceral parenchymal abnormalities decreased. Lung bases: Clear. Visualized heart and pericardium: Unremarkable. Liver: Unremarkable. Gallbladder: Unremarkable. Spleen: Unremarkable. Pancreas: Unremarkable. Adrenal glands: Unremarkable. Kidneys: Right kidney- No hydronephrosis. No renal stones. Left kidney- No hydronephrosis. No renal stones. Distal esophagus/stomach: Unremarkable. Small bowel loops: Normal caliber and wall thickness. Colon: Normal caliber and wall thickness. Normal appendix. Nodes: No enlarged nodes. A few small pericecal nodes. Peritoneum: No ascites. No free intraperitoneal air. Urinary bladder: Unremarkable. Uterus: Unremarkable. Adnexa: No masses Bones: No acute bony abnormality. Soft tissues: Unremarkable. Unopacified abdominal aorta: No aneurysmal dilatation. IMPRESSION: 1. No acute findings. Reviewed, dictated and finalized at location R. 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 No acute findings.
== END 2025-08-31 12:58 | disposition home or self-care (01) ==
PROVIDERS: Visit Provider Physician Assistant
DX: N20.1 Calculus of ureter (principal)
CPT/HCPCS: 74176